=== PATIENT | female | born 1995 | race African-American/Black ===

== ENCOUNTER 2016-07-02 02:20 | Emergency (ER) | payer OTHER ==
[2016-07-02] MEDS ORDERED: ONDANSETRON 4 MG ORAL DISINTEGRATING TAB (S0181) As Ordered ONE (03:48)
[2016-07-02 04:05] LABS: ANION GAP 10 MEQ/L (8-16); BLOOD UREA NITROGEN 9 MG/DL (7-18); CALCIUM LEVEL 8.1 MG/DL (8.5-10.1); CARBON DIOXIDE LEVEL 25 MEQ/L (21-32); CHLORIDE LEVEL 105 MEQ/L (98-107); CREATININE FOR GFR 0.74 MG/DL (0.55-1.02); GLUCOSE, FASTING 131 MG/DL (70-105); POTASSIUM SERUM 3.8 MEQ/L (3.5-5.1); SODIUM LEVEL 140 MEQ/L (136-145)
[2016-07-02 04:10] LABS: MICROSCOPIC INDICATED? MAN YES (NO)
[2016-07-02 04:15] LABS: MEAN CORPUSCULAR HEMOGLOBIN 26.7 pg (27.0-33.0); MEAN CORPUSCULAR HGB CONC 32.2 g/dl (32.0-36.5); MEAN CORPUSCULAR VOLUME 83.1 fl (80.0-96.0); RED CELL DISTRIBUTION WIDTH 13.2 % (11.5-14.5); WHITE BLOOD COUNT 9.2 K/mm3 (4.0-10.0)
[2016-07-02 04:29] LABS: HYALINE CAST, URINE 0-1 /lpf (0-1); RBC, URINE 0-1 /hpf (0-3); SQUAMOUS EPITHELIAL CELL URINE MOD AMOUNT /hpf (SMALL AMT); WBC, URINE 0-1 /hpf (0-3)
[2016-07-02 04:31] LABS: BACTERIA, URINE NONE SEEN; MICROSCOPIC EXAM PERFORMED
[2016-07-02 04:36] LABS: HCG, SERUM QUANTITATIVE 64 MIU/ML
[2016-07-02] MEDS ORDERED: METOCLOPRAMIDE INJ 10MG/2ML VIAL (J2765) As Ordered ONE (05:23)
--- NOTE | 2016-07-02 05:53 | EDDOCDS ---
Physician Documentation [facility] Name: Esther Marino Age: 21 yrs Sex: Female : 1995 Arrival Date: 07/02/2016 Time: 02:20 Bed Triage 1 Private MD: Disposition: 07/02/16 05:03 Discharged to Home/Self Care. Impression: Noninfective gastroenteritis and colitis, unspecified, state, incidental. - Condition is Stable. - Discharge Instructions: Clear Liquid Diet. - Medication Reconciliation, Local Pharmacy Hours form. - Follow up: Private Physician; When: Call to arrange an appointment; Reason: Recheck today's complaints. - Problem is new. - Symptoms have improved. Historical: - Allergies: No known drug Allergies; - Home Meds: 1. Zoloft 50 mg oral tab 3 tabs once daily (Last dose: 07/01/2016) 2. Xanax 0.25 mg Oral tab 1 tab twice a day as needeed (Last dose: Unknown) - PMHx: Anxiety; Depression; - PSHx: none; - Social history: Smoking status: Patient states was never smoker of tobacco. No barriers to communication noted, The patient speaks fluent Slovak, Speaks appropriately for age. - : The pt / caregiver states he / she is not on anticoagulants. Home medication list is obtained from the patient. - Exposure Risk Screening:: None identified. 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 8 in. (172.72 cm) (R); Pain 7/10; 02:34 Body Mass Index 28.74 (85.73 kg, 172.72 cm) km MDM: 03:12 UCG by Nursing ordered. kmg1 03:13 CBC Ordered. EDMS 03:13 BMP Ordered. EDMS 03:13 Culture Urine Ordered. EDMS 03:50 Ondansetron ODT Oral Disintegrating Tablet 8 mg PO once ordered. kmg1 04:05 HCG, SERUM QUANTITATIVE Ordered. EDMS 04:07 URINALYSIS MANUAL Ordered. EDMS 04:09 BMP Reviewed. cs11 04:11 MICROSCOPIC, URINE Ordered. EDMS 04:11 URINALYSIS MANUAL Reviewed. cs11 04:13 NS 0.9% 500 ml IV at bolus once ordered. cs11 04:18 Metoclopramide 10 mg IV at 40 mg/hr once over 15 mins ordered. cs11 04:20 CBC Reviewed. cs11 04:25 Financial registration complete. hs2 04:34 [facility] Payment Agreement was scanned into [employer] and attached to record. hs2 05:01 BMP Reviewed. cs11 05:01 URINALYSIS MANUAL Reviewed. cs11 05:01 MICROSCOPIC, URINE Reviewed. cs11 05:01 HCG, SERUM QUANTITATIVE Reviewed. cs11 Administered Medications: 03:55 Drug: Ondansetron ODT 8 mg [ondansetron 4 mg disintegrating tablet (2 tabs)] Route: PO; kmg1 04:35 Drug: NS 0.9% 500 ml [sodium chloride 0.9 % injection solution] Route: IV; Rate: bolus; kmg1 Site: right antecubital; 05:50 Follow up: IV Status: Completed infusion; IV Intake: 1000ml [facility] 05:27 Drug: Metoclopramide 10 mg [metoclopramide 5 mg/mL injection solution] Route: IV; Rate: kmg1 40 mg/hr; Infused Over: 15 mins; Site: right antecubital; Signatures: [facility] Luz Carter RN RN km Adryan Reyes, DO cs11 Eri Cary LPN LPN m Millie Moss, Reg Reg hs2 The chart was reviewed and I authenticate all verbal orders and agree with the evaluation and treatment provided.Corrections: (The following items were deleted from the chart) 04:03 03:59 HCG, SERUM QUANTITATIVE+LAB ordered. EDMS EDMS 04:07 03:13 URINALYSIS+LAB ordered. EDMS EDMS Attachments: 04:34 [facility] Payment Agreement hs2 MTDD
--- NOTE | 2016-07-02 05:53 | EDDOCDS ---
Nurse's Notes [facility] Name: Esther Marino Age: 21 yrs Sex: Female : 1995 Arrival Date: 07/02/2016 Time: 02:20 Bed Triage 1 Private MD: Diagnosis: Noninfective gastroenteritis and colitis, unspecified; state, incidental Presentation: 07/02 02:31 Presenting complaint: Patient states: Vomiting and diarrhea this evening. Nauseated mid kmg1 abdominal pain. Suicide/Homicide risk assessment- the patient denies having any suicidal and/or homicidal ideations and does not present with any other emotional, behavioral or mental health complaints. Status: The patient is a dependent. Transition of care: patient was not received from another setting of care. 02:31 Acuity: DUSTY Level 3 km 02:31 Method Of Arrival: Walkin/Carried/Asstd [facility] Triage Assessment: 02:34 General: Appears in no apparent distress, comfortable, Behavior is appropriate for age, kmg1 cooperative, pleasant. Pain: Location: abdomen Pain currently is 7 out of 10 on a pain scale. Quality of pain is described as sharp. Pt Declines HIV testing. GI: Reports diarrhea, upper abd pain, nausea, vomiting. 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 Zoloft 50 mg oral tab 3 tabs once daily (Last dose: 07/01/2016) 2. Xanax 0.25 mg Oral tab 1 tab twice a day as needeed (Last dose: Unknown) - PMHx: Anxiety; Depression; - PSHx: none; - Social history: Smoking status: Patient states was never smoker of tobacco. No barriers to communication noted, The patient speaks fluent Mongolian, Speaks appropriately for age. - : The pt / caregiver states he / she is not on anticoagulants. Home medication list is obtained from the patient. - Exposure Risk Screening:: None identified. Assessment: 05:51 Reassessment: Patient appears in no apparent distress at this time. Patient states slm feeling better. Patient states symptoms have improved. Vital Signs: 02:34 BP 138 / 81; Pulse 98; Resp 18; Temp 98(TE); Pulse Ox 95% on R/A; Weight 85.73 kg (R); kmg1 Height 5 ft. 8 in. (172.72 cm) (R); Pain 7/10; 02:34 Body Mass Index 28.74 (85.73 kg, 172.72 cm) [facility] Vitals: 02:34 Log In Time: July 02, 2016 at 02:22. [facility] ED Course: 02:21 Patient visited by Millie Moss Reg. hs2 02:21 Patient moved to Waiting hs2 02:32 Triage Initiated km 02:38 Patient visited by Luz Horn RN. kmg1 03:56 Culture Urine Sent. kmg1 04:05 Patient moved to Triage 1 kmg1 04:12 Adryan Reyes DO is Attending Physician. cs11 04:12 Patient visited by Adryan Reyes DO. cs11 04:31 Patient name changed from Esther\S\\S\Ekata\S\ to Esther\S\ \S\Ekata. EDMS 04:34 [facility] Payment Agreement was scanned into [employer] and attached to record. hs2 05:50 Eri Cary LPN is Primary Nurse. slm 05:51 Inserted saline lock: 20 gauge in right antecubital area. slm 05:51 Discontinued lock intact, bleeding controlled, pressure dressing applied, No slm redness/swelling at site. Administered Medications: 03:55 Drug: Ondansetron ODT 8 mg [ondansetron 4 mg disintegrating tablet (2 tabs)] Route: PO; [facility] 04:35 Drug: NS 0.9% 500 ml [sodium chloride 0.9 % injection solution] Route: IV; Rate: bolus; [facility] Site: right antecubital; 05:50 Follow up: IV Status: Completed infusion; IV Intake: 1000ml [facility] 05:27 Drug: Metoclopramide 10 mg [metoclopramide 5 mg/mL injection solution] Route: IV; Rate: [facility] 40 mg/hr; Infused Over: 15 mins; Site: right antecubital; Intake: 05:50 IV: 1000.00ml; Total: 1000.00ml. slm Order Results: Lab Order: CBC; SPEC'M 07/02/16 03:38 Test: WHITE BLOOD COUNT; Value: 9.2; Range: 4.0-10.0; Units: K/mm3; Status: F Test: RED BLOOD COUNT; Value: 5.07; Range: 4.00-5.40; Units: M/mm3; Status: F Test: HEMOGLOBIN; Value: 13.6; Range: 12.0-16.0; Units: g/dl; Status: F Test: HEMATOCRIT; Value: 42.1; Range: 36.0-47.0; Units: %; Status: F Test: MEAN CORPUSCULAR VOLUME; Value: 83.1; Range: 80.0-96.0; Units: fl; Status: F Test: MEAN CORPUSCULAR HEMOGLOBIN; Value: 26.7; Range: 27.0-33.0; Abnormal: Below low normal; Units: pg; Status: F Test: MEAN CORPUSCULAR HGB CONC; Value: 32.2; Range: 32.0-36.5; Units: g/dl; Status: F Test: RED CELL DISTRIBUTION WIDTH; Value: 13.2; Range: 11.5-14.5; Units: %; Status: F Test: PLATELET COUNT, AUTOMATED; Value: 256; Range: 150-450; Units: k/mm3; Status: F Lab Order: [facility]; SPEC'M 07/02/16 03:38 Test: GLUCOSE, FASTING; Value: 131; Range: 70-105; Abnormal: Above high normal; Units: MG/DL; Status: F Test: BLOOD UREA NITROGEN; Value: 9; Range: 7-18; Units: MG/DL; Status: F Test: CREATININE FOR GFR; Value: 0.74; Range: 0.55-1.02; Units: MG/DL; Status: F Test: SODIUM LEVEL; Value: 140; Range: 136-145; Units: MEQ/L; Status: F Test: POTASSIUM SERUM; Value: 3.8; Range: 3.5-5.1; Units: MEQ/L; Status: F Test: CHLORIDE LEVEL; Value: 105; Range: 98-107; Units: MEQ/L; Status: F Test: CARBON DIOXIDE LEVEL; Value: 25; Range: 21-32; Units: MEQ/L; Status: F Test: ANION GAP; Value: 10; Range: 8-16; Units: MEQ/L; Status: F Test: CALCIUM LEVEL; Value: 8.1; Range: 8.5-10.1; Abnormal: Below low normal; Units: MG/DL; Status: F Lab Order: HCG, SERUM QUANTITATIVE; [facility]'M 07/02/16 03:38 Test: HCG, SERUM QUANTITATIVE; Value: 64; Units: MIU/ML; Status: F Test Note: ; GESTATIONAL AGE APPROXIMATE HCG RANGE (MIU/ML) 0.2-1 WEEK 5-50 1-2 WEEKS 50-500 2-3 WEEKS 100-5,000 3-4 WEEKS 500-10,000 4-5 WEEKS 1,000-50,000 5-6 WEEKS 10,000-100,000 6-8 WEEKS 15,000-200,000 2-3 MONTHS 10,000-100,000 NON FEMALES LESS THAN 3.0 Patient samples may contain human heterophilic antibodies that could react with immunoassays to give falsely elevated or depressed results. This assay has been designed to minimize interference from heterophilic antibodies. Elevated hCG levels have also been associated with trophoblastic disease and nontrophoblastic neoplasms. The possibility of having these diseases should be considered before a diagnosis of is made. This test is not intended for use as a surrogate marker for aiding in the diagnosis or monitoring the treatment of cancer patients. Siemens Noxilizer methodology. Lab Order: URINALYSIS MANUAL; [facility]' 07/02/16 03:54 Test: APPEARANCE, URINE MANUAL; Value: HAZY; Range: CLEAR; Abnormal: Above high normal; Status: F Test: COLOR, URINE MANUAL; Value: YELLOW; Range: YELLOW; Status: F Test: PH,URINE MAN; Value: 5.0; Range: 5.0 - 9.0; Units: UNITS; Status: F Test: SPECIFIC GRAVITY,URINE MANUAL; Value: 1.025; Range: 1.002-1.035; Status: F Test: PROTEIN, URINE MANUAL; Value: 1+; Range: NEGATIVE; Abnormal: Above high normal; Units: mg/dL; Status: F Test: GLUCOSE, URINE (UA) MANUAL; Value: NEGATIVE; Range: NEGATIVE; Units: mg/dL; Status: F Test: KETONE, URINE MANUAL; Value: NEGATIVE; Range: NEGATIVE; Units: mg/dL; Status: F Test: UROBILINOGEN, URINE MANUAL; Value: NORMAL; Range: NORMAL; Units: mg/dl; Status: F Test: BILIRUBIN, URINE MANUAL; Value: NEGATIVE; Range: NEGATIVE; Status: F Test: NITRITE, URINE MANUAL; Value: NEGATIVE; Range: NEGATIVE; Status: F Test: LEUKOCYTE ESTERASE, URINE MAN; Value: TRACE; Range: NEGATIVE; Abnormal: Above high normal; Status: F Test: BLOOD URINE MANUAL; Value: POSITIVE; Range: NEGATIVE; Abnormal: Above high normal; Status: F Lab Order: MICROSCOPIC, URINE; SPEC'M 07/02/16 03:54 Test: WBC, URINE; Value: 0-1; Range: 0-3; Units: /hpf; Status: F Test: RBC, URINE; Value: 0-1; Range: 0-3; Units: /hpf; Status: F Test: SQUAMOUS EPITHELIAL CELL URINE; Value: MOD AMOUNT; Range: SMALL AMT; Abnormal: Above high normal; Units: /hpf; Status: F Test: BACTERIA, URINE; Value: NONE SEEN; Range: NONE; Status: F Test: HYALINE CAST, URINE; Value: 0-1; Range: 0-1; Units: /lpf; Status: F Test: MICROSCOPIC EXAM; Status: I Test: MUCUS, URINE; Value: LARGE AMOUNT; Range: NEGATIVE; Abnormal: Above high normal; Status: F Test: MICROSCOPIC EXAM; Value: PERFORMED; Status: F Outcome: 05:03 Discharge ordered by Provider. cs11 05:50 Discharge Assessment: Patient awake, alert and oriented x 3. No cognitive and/or slm functional deficits noted. Patient verbalized understanding of disposition instructions. patient administered narcotics - no. The following High Risk Discharge criteria are identified: None. Condition: good Condition: improved. Discharge instructions given to patient, Instructed on discharge instructions, follow up and referral plans. diet, Demonstrated understanding of instructions, Pt was receptive of discharge instructions/ teaching. No special radiology studies were completed. Property :Personal belongings accompany Pt. 05:52 Patient left the ED. slm Signatures: Dispatcher [employer] EDMS Luz Horn RN RN [facility] Adryan Reyes, DO DO cs11 Eri Cary LPN LPN [facility] Millie Moss, Reg Reg hs2 Corrections: (The following items were deleted from the chart) 04:03 04:01 HCG, SERUM QUANTITATIVE+LAB sent. [facility] EDMS 04:07 03:56 URINALYSIS+LAB sent. kmg1 EDMS MTDD
--- NOTE | 2016-07-04 06:52 | EDDOCDS ---
Physician Documentation [facility] Name: Esther Marino Age: 21 yrs Sex: Female : 1995 Arrival Date: 07/02/2016 Time: 02:20 Bed Triage 1 Private MD: Disposition: 07/02/16 05:03 Discharged to Home/Self Care. Impression: Noninfective gastroenteritis and colitis, unspecified, state, incidental. - Condition is Stable. - Discharge Instructions: Clear Liquid Diet. - Medication Reconciliation, Local Pharmacy Hours form. - Follow up: Private Physician; When: Call to arrange an appointment; Reason: Recheck today's complaints. - Problem is new. - Symptoms have improved. Historical: - Allergies: No known drug Allergies; - Home Meds: 1. Zoloft 50 mg oral tab 3 tabs once daily (Last dose: 07/01/2016) 2. Xanax 0.25 mg Oral tab 1 tab twice a day as needeed (Last dose: Unknown) - PMHx: Anxiety; Depression; - PSHx: none; - Social history: Smoking status: Patient states was never smoker of tobacco. No barriers to communication noted, The patient speaks fluent Slovenian, Speaks appropriately for age. - : The pt / caregiver states he / she is not on anticoagulants. Home medication list is obtained from the patient. - Exposure Risk Screening:: None identified. 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 8 in. (172.72 cm) (R); Pain 7/10; 02:34 Body Mass Index 28.74 (85.73 kg, 172.72 cm) km MDM: 03:12 UCG by Nursing ordered. kmg1 03:13 CBC Ordered. EDMS 03:13 BMP Ordered. EDMS 03:13 Culture Urine Ordered. EDMS 03:50 Ondansetron ODT Oral Disintegrating Tablet 8 mg PO once ordered. kmg1 04:05 HCG, SERUM QUANTITATIVE Ordered. EDMS 04:07 URINALYSIS MANUAL Ordered. EDMS 04:09 BMP Reviewed. cs11 04:11 MICROSCOPIC, URINE Ordered. EDMS 04:11 URINALYSIS MANUAL Reviewed. cs11 04:13 NS 0.9% 500 ml IV at bolus once ordered. cs11 04:18 Metoclopramide 10 mg IV at 40 mg/hr once over 15 mins ordered. cs11 04:20 CBC Reviewed. cs11 04:25 Financial registration complete. hs2 04:34 [facility] Payment Agreement was scanned into [employer] and attached to record. hs2 05:01 BMP Reviewed. cs11 05:01 URINALYSIS MANUAL Reviewed. cs11 05:01 MICROSCOPIC, URINE Reviewed. cs11 05:01 HCG, SERUM QUANTITATIVE Reviewed. cs11 08:38 T-Sheet-- Draft Copy was scanned into [employer] and attached to record. se Administered Medications: 03:55 Drug: Ondansetron ODT 8 mg [ondansetron 4 mg disintegrating tablet (2 tabs)] Route: PO; kmg1 04:35 Drug: NS 0.9% 500 ml [sodium chloride 0.9 % injection solution] Route: IV; Rate: bolus; kmg1 Site: right antecubital; 05:50 Follow up: IV Status: Completed infusion; IV Intake: 1000ml [facility] 05:27 Drug: Metoclopramide 10 mg [metoclopramide 5 mg/mL injection solution] Route: IV; Rate: kmg1 40 mg/hr; Infused Over: 15 mins; Site: right antecubital; Signatures: Dispatcher [employer] EDMS Luz Horn RN RN kmg1 Adryan Reyes DO DO cs11 Eri Cary LPN LPN [facility] Millie Moss, Reg Reg hs2 Litzy Dotson [facility] The chart was reviewed and I authenticate all verbal orders and agree with the evaluation and treatment provided.Corrections: (The following items were deleted from the chart) 04:03 03:59 HCG, SERUM QUANTITATIVE+LAB ordered. EDMS EDMS 04:07 03:13 URINALYSIS+LAB ordered. EDMS EDMS Attachments: 04:34 [facility] Payment Agreement hs2 08:38 T-Sheet-- Draft Copy [facility] Chart Complete MTDD
--- NOTE | 2016-07-04 06:52 | EDDOCDS ---
Nurse's Notes [facility] Name: Esther Marino Age: 21 yrs Sex: Female : 1995 Arrival Date: 07/02/2016 Time: 02:20 Bed Triage 1 Private MD: Diagnosis: Noninfective gastroenteritis and colitis, unspecified; state, incidental Presentation: 07/02 02:31 Presenting complaint: Patient states: Vomiting and diarrhea this evening. Nauseated mid kmg1 abdominal pain. Suicide/Homicide risk assessment- the patient denies having any suicidal and/or homicidal ideations and does not present with any other emotional, behavioral or mental health complaints. Status: The patient is a dependent. Transition of care: patient was not received from another setting of care. 02:31 Acuity: DUSTY Level 3 km 02:31 Method Of Arrival: Walkin/Carried/Asstd [facility] Triage Assessment: 02:34 General: Appears in no apparent distress, comfortable, Behavior is appropriate for age, kmg1 cooperative, pleasant. Pain: Location: abdomen Pain currently is 7 out of 10 on a pain scale. Quality of pain is described as sharp. Pt Declines HIV testing. GI: Reports diarrhea, upper abd pain, nausea, vomiting. [employer]BLER: 02:34 LMP 05/21/2016 [facility] Historical: - Allergies: No known drug Allergies; - Home Meds: 1. Zoloft 50 mg oral tab 3 tabs once daily (Last dose: 07/01/2016) 2. Xanax 0.25 mg Oral tab 1 tab twice a day as needeed (Last dose: Unknown) - PMHx: Anxiety; Depression; - PSHx: none; - Social history: Smoking status: Patient states was never smoker of tobacco. No barriers to communication noted, The patient speaks fluent [place] Citizen, Speaks appropriately for age. - : The pt / caregiver states he / she is not on anticoagulants. Home medication list is obtained from the patient. - Exposure Risk Screening:: None identified. Assessment: 05:51 Reassessment: Patient appears in no apparent distress at this time. Patient states slm feeling better. Patient states symptoms have improved. Vital Signs: 02:34 BP 138 / 81; Pulse 98; Resp 18; Temp 98(TE); Pulse Ox 95% on R/A; Weight 85.73 kg (R); kmg1 Height 5 ft. 8 in. (172.72 cm) (R); Pain 7/10; 02:34 Body Mass Index 28.74 (85.73 kg, 172.72 cm) [facility] Vitals: 02:34 Log In Time: July 02, 2016 at 02:22. [facility] ED Course: 02:21 Patient visited by Millie Moss Reg. hs2 02:21 Patient moved to Waiting hs2 02:32 Triage Initiated km 02:38 Patient visited by Luz Horn RN. kmg1 03:56 Culture Urine Sent. kmg1 04:05 Patient moved to Triage 1 kmg1 04:12 Adryan Reyes DO is Attending Physician. cs11 04:12 Patient visited by Adryan Reyes DO. cs11 04:31 Patient name changed from Esther\S\\S\Ekata\S\ to Esther\S\ \S\Ekata. EDMS 04:34 [facility] [place] Agreement was scanned into [employer] and attached to record. hs2 05:50 Eri Cary LPN is Primary Nurse. slm 05:51 Inserted saline lock: 20 gauge in right antecubital area. slm 05:51 Discontinued lock intact, bleeding controlled, pressure dressing applied, No slm redness/swelling at site. 08:38 T-Sheet-- Draft Copy was scanned into [employer] and attached to record. [facility] Administered Medications: 03:55 Drug: Ondansetron ODT 8 mg [ondansetron 4 mg disintegrating tablet (2 tabs)] Route: PO; [facility] 04:35 Drug: NS 0.9% 500 ml [sodium chloride 0.9 % injection solution] Route: IV; Rate: bolus; km Site: right antecubital; 05:50 Follow up: IV Status: Completed infusion; IV Intake: 1000ml sl 05:27 Drug: Metoclopramide 10 mg [metoclopramide 5 mg/mL injection solution] Route: IV; Rate: kmg1 40 mg/hr; Infused Over: 15 mins; Site: right antecubital; Intake: 05:50 IV: 1000.00ml; Total: 1000.00ml. slm Order Results: Lab Order: Culture Urine; SPEC'M 07/02/16 03:54 Test: URINE CULTURE; Value: <EXTERNAL COMMENT eCWMed> FULL REPORT IN LAB NOTES (eCW and Medent).; Status: F Test: URINE CULTURE; Value: URINE CULTURE RESULT SPECIMEN APPEARS CONTAMINATED; Status: F Lab Order: CBC; SPEC'M 07/02/16 03:38 Test: WHITE BLOOD COUNT; Value: 9.2; Range: 4.0-10.0; Units: K/mm3; Status: F Test: RED BLOOD COUNT; Value: 5.07; Range: 4.00-5.40; Units: M/mm3; Status: F Test: HEMOGLOBIN; Value: 13.6; Range: 12.0-16.0; Units: g/dl; Status: F Test: HEMATOCRIT; Value: 42.1; Range: 36.0-47.0; Units: %; Status: F Test: MEAN CORPUSCULAR VOLUME; Value: 83.1; Range: 80.0-96.0; Units: fl; Status: F Test: MEAN CORPUSCULAR HEMOGLOBIN; Value: 26.7; Range: 27.0-33.0; Abnormal: Below low normal; Units: pg; Status: F Test: MEAN CORPUSCULAR HGB CONC; Value: 32.2; Range: 32.0-36.5; Units: g/dl; Status: F Test: RED CELL DISTRIBUTION WIDTH; Value: 13.2; Range: 11.5-14.5; Units: %; Status: F Test: PLATELET COUNT, AUTOMATED; Value: 256; Range: 150-450; Units: k/mm3; Status: F Lab Order: BMP; SPEC'M 07/02/16 03:38 Test: GLUCOSE, FASTING; Value: 131; Range: 70-105; Abnormal: Above high normal; Units: MG/DL; Status: F Test: BLOOD UREA NITROGEN; Value: 9; Range: 7-18; Units: MG/DL; Status: F Test: CREATININE FOR GFR; Value: 0.74; Range: 0.55-1.02; Units: MG/DL; Status: F Test: SODIUM LEVEL; Value: 140; Range: 136-145; Units: MEQ/L; Status: F Test: POTASSIUM SERUM; Value: 3.8; Range: 3.5-5.1; Units: MEQ/L; Status: F Test: CHLORIDE LEVEL; Value: 105; Range: 98-107; Units: MEQ/L; Status: F Test: CARBON DIOXIDE LEVEL; Value: 25; Range: 21-32; Units: MEQ/L; Status: F Test: ANION GAP; Value: 10; Range: 8-16; Units: MEQ/L; Status: F Test: CALCIUM LEVEL; Value: 8.1; Range: 8.5-10.1; Abnormal: Below low normal; Units: MG/DL; Status: F Lab Order: HCG, SERUM QUANTITATIVE; SPEC'M 07/02/16 03:38 Test: HCG, SERUM QUANTITATIVE; Value: 64; Units: MIU/ML; Status: F Test Note: ; GESTATIONAL AGE APPROXIMATE HCG RANGE (MIU/ML) 0.2-1 WEEK 5-50 1-2 WEEKS 50-500 2-3 WEEKS 100-5,000 3-4 WEEKS 500-10,000 4-5 WEEKS 1,000-50,000 5-6 WEEKS 10,000-100,000 6-8 WEEKS 15,000-200,000 2-3 MONTHS 10,000-100,000 NON FEMALES LESS THAN 3.0 Patient samples may contain human heterophilic antibodies that could react with immunoassays to give falsely elevated or depressed results. This assay has been designed to minimize interference from heterophilic antibodies. Elevated hCG levels have also been associated with trophoblastic disease and nontrophoblastic neoplasms. The possibility of having these diseases should be considered before a diagnosis of is made. This test is not intended for use as a surrogate marker for aiding in the diagnosis or monitoring the treatment of cancer patients. [employer] methodology. Lab Order: URINALYSIS MANUAL; SPEC'M 07/02/16 03:54 Test: APPEARANCE, URINE MANUAL; Value: HAZY; Range: CLEAR; Abnormal: Above high normal; Status: F Test: COLOR, URINE MANUAL; Value: YELLOW; Range: YELLOW; Status: F Test: PH,URINE MAN; Value: 5.0; Range: 5.0 - 9.0; Units: UNITS; Status: F Test: SPECIFIC GRAVITY,URINE MANUAL; Value: 1.025; Range: 1.002-1.035; Status: F Test: PROTEIN, URINE MANUAL; Value: 1+; Range: NEGATIVE; Abnormal: Above high normal; Units: mg/dL; Status: F Test: GLUCOSE, URINE (UA) MANUAL; Value: NEGATIVE; Range: NEGATIVE; Units: mg/dL; Status: F Test: KETONE, URINE MANUAL; Value: NEGATIVE; Range: NEGATIVE; Units: mg/dL; Status: F Test: UROBILINOGEN, URINE MANUAL; Value: NORMAL; Range: NORMAL; Units: mg/dl; Status: F Test: BILIRUBIN, URINE MANUAL; Value: NEGATIVE; Range: NEGATIVE; Status: F Test: NITRITE, URINE MANUAL; Value: NEGATIVE; Range: NEGATIVE; Status: F Test: LEUKOCYTE ESTERASE, URINE MAN; Value: TRACE; Range: NEGATIVE; Abnormal: Above high normal; Status: F Test: BLOOD URINE MANUAL; Value: POSITIVE; Range: NEGATIVE; Abnormal: Above high normal; Status: F Lab Order: MICROSCOPIC, URINE; SPEC'M 07/02/16 03:54 Test: WBC, URINE; Value: 0-1; Range: 0-3; Units: /hpf; Status: F Test: RBC, URINE; Value: 0-1; Range: 0-3; Units: /hpf; Status: F Test: SQUAMOUS EPITHELIAL CELL URINE; Value: MOD AMOUNT; Range: SMALL AMT; Abnormal: Above high normal; Units: /hpf; Status: F Test: BACTERIA, URINE; Value: NONE SEEN; Range: NONE; Status: F Test: HYALINE CAST, URINE; Value: 0-1; Range: 0-1; Units: /lpf; Status: F Test: MICROSCOPIC EXAM; Status: I Test: MUCUS, URINE; Value: LARGE AMOUNT; Range: NEGATIVE; Abnormal: Above high normal; Status: F Test: MICROSCOPIC EXAM; Value: PERFORMED; Status: F Outcome: 05:03 Discharge ordered by Provider. cs11 05:50 Discharge Assessment: Patient awake, alert and oriented x 3. No cognitive and/or slm functional deficits noted. Patient verbalized understanding of disposition instructions. patient administered narcotics - no. The following High Risk Discharge criteria are identified: None. Condition: good Condition: improved. Discharge instructions given to patient, Instructed on discharge instructions, follow up and referral plans. diet, Demonstrated understanding of instructions, Pt was receptive of discharge instructions/ teaching. No special radiology studies were completed. Property :Personal belongings accompany Pt. 05:52 Patient left the ED. [facility] Signatures: Dispatcher [employer] EDMS Luz Horn, ALESSANDRO RN [facility] Adryan Reyes, DO cs11 Eri Cary LPN LPN [facility] Millie Moss, Reg Reg hs2 Litzy Dotson Corrections: (The following items were deleted from the chart) 04:03 04:01 HCG, SERUM QUANTITATIVE+LAB sent. [address] 04:07 03:56 URINALYSIS+LAB sent. [address] Chart Complete MTDD
--- NOTE | 2016-07-04 06:52 | EDDOCDS ---
Physician Documentation [facility] Name: Esther Marino Age: 21 yrs Sex: Female : 1995 Arrival Date: 07/02/2016 Time: 02:20 Bed Triage 1 Private MD: Disposition: 07/02/16 05:03 Discharged to Home/Self Care. Impression: Noninfective gastroenteritis and colitis, unspecified, state, incidental. - Condition is Stable. - Discharge Instructions: Clear Liquid Diet. - Medication Reconciliation, Local Pharmacy Hours form. - Follow up: Private Physician; When: Call to arrange an appointment; Reason: Recheck today's complaints. - Problem is new. - Symptoms have improved. Historical: - Allergies: No known drug Allergies; - Home Meds: 1. Zoloft 50 mg oral tab 3 tabs once daily (Last dose: 07/01/2016) 2. Xanax 0.25 mg Oral tab 1 tab twice a day as needeed (Last dose: Unknown) - PMHx: Anxiety; Depression; - PSHx: none; - Social history: Smoking status: Patient states was never smoker of tobacco. No barriers to communication noted, The patient speaks fluent Arabic, Speaks appropriately for age. - : The pt / caregiver states he / she is not on anticoagulants. Home medication list is obtained from the patient. - Exposure Risk Screening:: None identified. 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 8 in. (172.72 cm) (R); Pain 7/10; 02:34 Body Mass Index 28.74 (85.73 kg, 172.72 cm) km MDM: 03:12 UCG by Nursing ordered. kmg1 03:13 CBC Ordered. EDMS 03:13 BMP Ordered. EDMS 03:13 Culture Urine Ordered. EDMS 03:50 Ondansetron ODT Oral Disintegrating Tablet 8 mg PO once ordered. kmg1 04:05 HCG, SERUM QUANTITATIVE Ordered. EDMS 04:07 URINALYSIS MANUAL Ordered. EDMS 04:09 BMP Reviewed. cs11 04:11 MICROSCOPIC, URINE Ordered. EDMS 04:11 URINALYSIS MANUAL Reviewed. cs11 04:13 NS 0.9% 500 ml IV at bolus once ordered. cs11 04:18 Metoclopramide 10 mg IV at 40 mg/hr once over 15 mins ordered. cs11 04:20 CBC Reviewed. cs11 04:25 Financial registration complete. hs2 04:34 [facility] Payment Agreement was scanned into [employer] and attached to record. hs2 05:01 BMP Reviewed. cs11 05:01 URINALYSIS MANUAL Reviewed. cs11 05:01 MICROSCOPIC, URINE Reviewed. cs11 05:01 HCG, SERUM QUANTITATIVE Reviewed. cs11 08:38 T-Sheet-- Draft Copy was scanned into [employer] and attached to record. se Administered Medications: 03:55 Drug: Ondansetron ODT 8 mg [ondansetron 4 mg disintegrating tablet (2 tabs)] Route: PO; kmg1 04:35 Drug: NS 0.9% 500 ml [sodium chloride 0.9 % injection solution] Route: IV; Rate: bolus; kmg1 Site: right antecubital; 05:50 Follow up: IV Status: Completed infusion; IV Intake: 1000ml [facility] 05:27 Drug: Metoclopramide 10 mg [metoclopramide 5 mg/mL injection solution] Route: IV; Rate: kmg1 40 mg/hr; Infused Over: 15 mins; Site: right antecubital; Signatures: Dispatcher [employer] EDMS Luz Horn RN RN kmg1 Adryan Reyes DO DO cs11 Eri Cary LPN LPN [facility] Millie Moss, Reg Reg hs2 Litzy Dotson [facility] The chart was reviewed and I authenticate all verbal orders and agree with the evaluation and treatment provided.Corrections: (The following items were deleted from the chart) 04:03 03:59 HCG, SERUM QUANTITATIVE+LAB ordered. EDMS EDMS 04:07 03:13 URINALYSIS+LAB ordered. EDMS EDMS Attachments: 04:34 [facility] Payment Agreement hs2 08:38 T-Sheet-- Draft Copy [facility] Chart Complete MTDD
== END 2016-07-02 05:52 | disposition home or self-care (01) ==
LOC: M ED 02:20
DX: O98.519 Other viral diseases complicating pregnancy, unspecified trimester (principal); Z3A.00 Weeks of gestation of pregnancy not specified; F41.9 Anxiety disorder, unspecified; F32.9 Major depressive disorder, single episode, unspecified; Z79.899 Other long term (current) drug therapy
CPT/HCPCS: 80048; 81000; 84702; 85027; 87086; 96361; 96374; 99284; J2765

== ENCOUNTER 2016-09-07 08:03 | Emergency (ER) | payer OTHER ==
[~2016-09-07] VITALS: Ht 172.7 cm; Wt 77.1 kg
[2016-09-07] MEDS ORDERED: ZOLO100T PO (08:14)
[2016-09-07] MEDS ORDERED: XANA0.25 PO (08:14)
[2016-09-07] MEDS ORDERED: NS 1,000 ML IV ONE (08:45)
[2016-09-07 09:22] LABS: ALBUMIN 3.5 GM/DL (3.2-5.2); ALBUMIN/GLOBULIN RATIO 0.95 (1.00-1.93); ALKALINE PHOSPHATASE 45 U/L (45-117); ALT/SGPT 24 U/L (12-78); ANION GAP 7 MEQ/L (8-16); AST/SGOT 8 U/L (15-37); BILIRUBIN,DIRECT < 0.1 MG/DL (0.0-0.2); BILIRUBIN,TOTAL 0.2 MG/DL (0.2-1.0); BLOOD UREA NITROGEN 6 MG/DL (7-18); CALCIUM LEVEL 8.7 MG/DL (8.5-10.1); CARBON DIOXIDE LEVEL 26 MEQ/L (21-32); CHLORIDE LEVEL 105 MEQ/L (98-107); CREATININE FOR GFR 0.67 MG/DL (0.55-1.02); GLUCOSE, FASTING 85 MG/DL (70-105); POTASSIUM SERUM 3.7 MEQ/L (3.5-5.1); SODIUM LEVEL 138 MEQ/L (136-145); TOTAL PROTEIN 7.2 GM/DL (6.4-8.2)
[2016-09-07 09:34] LABS: BASO % 0.3 % (0.0-1.0); EOS # 0.1 K/mm3 (0.0-0.50); EOS % 0.8 % (0.0-3.0); LARGE UNSTAINED CELL # 0.1 K/mm3 (0.0-0.4); LARGE UNSTAINED CELL % 1.6 % (0.0-4.0); LYMPH # 1.5 K/mm3 (1.5-6.5); LYMPH % 16.2 % (24.0-44.0); MEAN CORPUSCULAR HGB CONC 32.4 g/dl (32.0-36.5); MEAN CORPUSCULAR VOLUME 83.4 fl (80.0-96.0); MONO # 0.4 K/mm3 (0.0-0.8); MONO % 4.5 % (0.0-5.0); NEUTROPHILS # 6.6 K/mm3 (1.8-7.7); NEUTROPHILS % 76.7 % (36.0-66.0); PLATELET COUNT, AUTOMATED 250 k/mm3 (150-450); RED CELL DISTRIBUTION WIDTH 13.4 % (11.5-14.5); WHITE BLOOD COUNT 8.6 K/mm3 (4.0-10.0)
[2016-09-07] MEDS ORDERED: SUCRALFATE 1 GM TAB PO ONE (09:45)
[2016-09-07] MEDS ORDERED: PANTOPRAZOLE 40MG INJ (PROTONIX) (C9113) IV ONE (09:45)
[2016-09-07] MEDS ORDERED: SUCR1SS PO (10:22)
[2016-09-07] MEDS ORDERED: PEPC1TAB4 PO (10:23)
[2016-09-07 10:33] VITALS: BP 137/74
== END 2016-09-07 10:35 | disposition home or self-care (01) ==
LOC: M ED 08:43
DX: O21.9 Vomiting of pregnancy, unspecified (principal); Z3A.13 13 weeks gestation of pregnancy
CPT/HCPCS: 80048; 80076; 83690; 85025; 96361; 96374; 99283; C9113

== ENCOUNTER 2016-09-20 14:27 | Emergency (ER) | payer OTHER ==
[~2016-09-20] VITALS: Ht 172.7 cm; Wt 100.2 kg
[~2016-09-20 14:27] MED LIST: PEPC1TAB4 PO; SUCR1SS PO; XANA0.25 PO; ZOLO100T PO
[2016-09-20] MEDS ORDERED: [UNRECOGNIZED DRUG - CODE] PO (14:56)
[2016-09-20] MEDS ORDERED: BUSP15TA47 PO (14:56)
[2016-09-20] MEDS ORDERED: RANI150T PO (14:56)
[2016-09-20] MEDS ORDERED: NS 1,000 ML IV ONE (15:45)
[2016-09-20] MEDS ORDERED: ONDANSETRON 4MG/2ML VIAL (J2405) IV ONE (15:45)
[2016-09-20 16:22] LABS: BASO % 0.2 % (0.0-1.0); EOS # 0.1 K/mm3 (0.0-0.50); EOS % 0.9 % (0.0-3.0); LARGE UNSTAINED CELL # 0.2 K/mm3 (0.0-0.4); LARGE UNSTAINED CELL % 1.8 % (0.0-4.0); LYMPH % 20.3 % (24.0-44.0); MEAN CORPUSCULAR HEMOGLOBIN 27.2 pg (27.0-33.0); MEAN CORPUSCULAR HGB CONC 32.9 g/dl (32.0-36.5); MEAN CORPUSCULAR VOLUME 82.8 fl (80.0-96.0); MONO # 0.5 K/mm3 (0.0-0.8); MONO % 5.6 % (0.0-5.0); NEUTROPHILS # 6.4 K/mm3 (1.8-7.7); NEUTROPHILS % 71.1 % (36.0-66.0); PLATELET COUNT, AUTOMATED 239 k/mm3 (150-450); RED CELL DISTRIBUTION WIDTH 13.3 % (11.5-14.5)
[2016-09-20 16:27] LABS: ALBUMIN 3.4 GM/DL (3.2-5.2); ALBUMIN/GLOBULIN RATIO 0.89 (1.00-1.93); ALKALINE PHOSPHATASE 43 U/L (45-117); ALT/SGPT 25 U/L (12-78); ANION GAP 7 MEQ/L (8-16); AST/SGOT 8 U/L (15-37); BILIRUBIN,DIRECT < 0.1 MG/DL (0.0-0.2); BILIRUBIN,TOTAL 0.2 MG/DL (0.2-1.0); BLOOD UREA NITROGEN 7 MG/DL (7-18); CALCIUM LEVEL 8.7 MG/DL (8.5-10.1); CARBON DIOXIDE LEVEL 25 MEQ/L (21-32); CHLORIDE LEVEL 104 MEQ/L (98-107); GLUCOSE, FASTING 82 MG/DL (70-105); POTASSIUM SERUM 3.9 MEQ/L (3.5-5.1); SODIUM LEVEL 136 MEQ/L (136-145); TOTAL PROTEIN 7.2 GM/DL (6.4-8.2)
[2016-09-20] MEDS ORDERED: METOCLOPRAMIDE INJ 10MG/2ML VIAL (J2765) IV ONE (18:30)
[2016-09-20] MEDS ORDERED: PYRIDOXINE 50 MG TAB PO ONE (18:30)
[2016-09-20 18:40] VITALS: BP 148/92
[2016-09-20] MEDS ORDERED: REGL10TA6 PO (19:18)
[2016-09-20] MEDS ORDERED: PYRI25TA3 PO (19:18)
== END 2016-09-20 19:38 | disposition home or self-care (01) ==
LOC: M ED 16:24
DX: O21.9 Vomiting of pregnancy, unspecified (principal); O99.89 Other specified diseases and conditions complicating pregnancy, childbirth and the puerperium; R10.13 Epigastric pain; Z3A.16 16 weeks gestation of pregnancy
CPT/HCPCS: 80048; 80076; 81001; 83690; 85025; 96374; 96375; 99283; J2405; J2765

== ENCOUNTER 2016-09-29 19:24 | Emergency (ER) | payer OTHER, SELFPAY ==
[~2016-09-29] VITALS: Ht 172.7 cm; Wt 103.9 kg
[~2016-09-29 19:24] MED LIST changes: +BUSP15TA47 PO; +PYRI25TA3 PO; +RANI150T PO; +REGL10TA6 PO; +[UNRECOGNIZED DRUG - CODE] PO
[2016-09-29] MEDS ORDERED: NS 1,000 ML IV ONE (21:15)
[2016-09-29] MEDS ORDERED: GI COCKTAIL 50ML BTL(HYOSCYAMINE/MAALOX/LIDOCAINE VISCOUS)(1:3:1) PO ONE (21:15)
[2016-09-29] MEDS ORDERED: ONDANSETRON 4MG/2ML VIAL (J2405) IV ONE (21:15)
[2016-09-29 21:48] LABS: BASO % 0.1 % (0.0-1.0); EOS # 0.2 K/mm3 (0.0-0.50); EOS % 1.8 % (0.0-3.0); LARGE UNSTAINED CELL # 0.1 K/mm3 (0.0-0.4); LARGE UNSTAINED CELL % 1.4 % (0.0-4.0); LYMPH # 2.3 K/mm3 (1.5-6.5); MEAN CORPUSCULAR HEMOGLOBIN 27.9 pg (27.0-33.0); MEAN CORPUSCULAR HGB CONC 34.4 g/dl (32.0-36.5); MEAN CORPUSCULAR VOLUME 81.1 fl (80.0-96.0); MONO # 0.4 K/mm3 (0.0-0.8); NEUTROPHILS # 6.8 K/mm3 (1.8-7.7); NEUTROPHILS % 69.8 % (36.0-66.0); PLATELET COUNT, AUTOMATED 244 k/mm3 (150-450); RED CELL DISTRIBUTION WIDTH 13.3 % (11.5-14.5); WHITE BLOOD COUNT 9.8 K/mm3 (4.0-10.0)
[2016-09-29 21:56] LABS: INR 1.06
--- NOTE | 2016-09-29 22:12 | ECGEPIP ---
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
[2016-09-29 22:16] LABS: ALBUMIN 3.3 GM/DL (3.2-5.2); ALBUMIN/GLOBULIN RATIO 0.97 (1.00-1.93); ALKALINE PHOSPHATASE 45 U/L (45-117); ALT/SGPT 28 U/L (12-78); ANION GAP 9 MEQ/L (8-16); AST/SGOT 6 U/L (15-37); BILIRUBIN,DIRECT < 0.1 MG/DL (0.0-0.2); BILIRUBIN,TOTAL 0.2 MG/DL (0.2-1.0); BLOOD UREA NITROGEN 7 MG/DL (7-18); CALCIUM LEVEL 8.8 MG/DL (8.5-10.1); CARBON DIOXIDE LEVEL 23 MEQ/L (21-32); CHLORIDE LEVEL 106 MEQ/L (98-107); CREATININE FOR GFR 0.56 MG/DL (0.55-1.02); GLUCOSE, FASTING 73 MG/DL (70-105); POTASSIUM SERUM 3.8 MEQ/L (3.5-5.1); SODIUM LEVEL 138 MEQ/L (136-145); TOTAL PROTEIN 6.7 GM/DL (6.4-8.2)
[2016-09-29] MEDS ORDERED: ZOFR4TAB3 PO (23:00)
[2016-09-29 23:05] VITALS: BP 132/82
== END 2016-09-29 23:52 | disposition home or self-care (01) ==
LOC: M ED 20:26
DX: O23.92 Unspecified genitourinary tract infection in pregnancy, second trimester (principal); K29.00 Acute gastritis without bleeding; K21.0 Gastro-esophageal reflux disease with esophagitis; O21.9 Vomiting of pregnancy, unspecified; Z3A.16 16 weeks gestation of pregnancy
CPT/HCPCS: 80048; 80076; 81001; 82550; 82553; 83690; 85025; 85610; 85730; 93005; 96374; 99284; J2405

== ENCOUNTER 2016-11-30 16:30 | Outpatient (CLI) | payer OTHER ==
[~2016-11-30] VITALS: Ht 172.7 cm; Wt 120.0 kg
[~2016-11-30 16:30] MED LIST changes: +ZOFR4TAB3 PO
== END 2016-11-30 18:04 | disposition home or self-care (01) ==
LOC: M LDO 16:30
PROVIDERS: ATTEND Obstetrics & Gynecology
DX: O26.852 Spotting complicating pregnancy, second trimester (principal); Z3A.25 25 weeks gestation of pregnancy; O99.612 Diseases of the digestive system complicating pregnancy, second trimester; K59.00 Constipation, unspecified; O99.342 Other mental disorders complicating pregnancy, second trimester; F41.9 Anxiety disorder, unspecified

== ENCOUNTER 2017-01-20 19:54 | Outpatient (CLI) | payer OTHER ==
[~2017-01-20] VITALS: Ht 172.7 cm; Wt 129.0 kg
[2017-01-20 20:10] VITALS: BP 157/105
[2017-01-20 20:35] VITALS: BP 153/82
[2017-01-20 21:09] VITALS: BP 137/95
[2017-01-20 21:57] LABS: ALT/SGPT 17 U/L (12-78); AST/SGOT 10 U/L (15-37); BILIRUBIN,TOTAL 0.2 MG/DL (0.2-1.0); CREATININE FOR GFR 0.74 MG/DL (0.55-1.02); GLOMERULAR FILTRATION RATE > 60.0 (>60); URIC ACID 4.1 MG/DL (2.6-6.0)
--- NOTE | 2017-01-21 00:24 | HPE ---
DATE OF ADMISSION: 01/20/2017 22-year-old 1, para 0, last menstrual period (LMP) of 06/08/2016, estimated date of confinement (EDC) 03/09/2017 at 33 weeks and 1 day of gestation with a history of 3 days of diarrhea. Did not take anything for the diarrhea and said she does not take the medications that we actually give her. Her risk factors are that she is noncompliant. She has a two-vessel cord, did not attend three ultrasound appointments to evaluate the fetus. Body mass index (BMI) is 42, did not do her 28 weeks labs. Suffers from depression, did not keep her appointment with psychiatry and does not take her Zoloft or her BuSpar as required. Her labs are O positive, HIV negative, rubella immune, RPR negative, sickle cell is negative. says he is negative. Hepatitis negative. Varicella immune. Cystic fibrosis negative and gonorrhea and chlamydia are negative. On examination, she does not appear in any distress. She has no diarrhea. She does not seem to be dehydrated. She has a category one strip and no contractions and she insists that she is fine and the baby is fine. She denies any vaginal loss or bleeding. Blood pressure is 157/105, 153/82 and 137/95, temperature 98.1, respirations 20, pulse is 91. This lady was leaving the area on 01/25 and does not have a followup appointment at [facility] ([facility]). When reviewed her chart, these were the only midrange blood pressures that we saw. She did not have any abnormal blood pressures in the limited time that she saw [facility]. Therefore pre-eclamptic profile was performed. She has no symptomatology of prerenal right upper quadrant pain. No visual disturbances. No edema. No headaches. In our evaluation of her chemistry, her protein creatinine shows 0.22. Her A1c was 5.5 and her random sugar was 111. Her kidney function was normal. Her liver profile was normal. Her uric acid was 4.1 and the rest of the CBC was within normal limits. The rest of her physical examination, she is normocephalic, atraumatic. Neck full range of motion. Pupils equal and reactive to light. Distal pulses symmetric. No evidence of deep venous thrombosis (DVT), pulmonary embolus (PE) or superficial phlebitis. No clonus. No edema. Chest is clear bilaterally to bases. No wheezes or rhonchi. No costovertebral angle (CVA) tenderness. Symphysis fundus height is appropriate. Category one strip. Four quadrant bowel sounds are noted and in fact some of them are hyperactive secondary to her gastrointestinal (GI) irritability. She has no rashes, lesions or pruritus. No arthralgia, myalgia. No complaints of cough, wheezes, shortness of breath or dyspnea on exertion. No chest pain. No bleeding. Neurologically complete. No incontinence, urgency or frequency. No nausea, vomiting. She said she has diarrhea. No constipation. Diabetic issues were unknown. Gynecological (DIRECTOR OF ONCOLOGY) issues unremarkable. Past surgical, medical history noncontributory. Family history noncontributory. She does not smoke, drink abuse drugs. She has no domestic violence. Her is being deployed tomorrow and she is leaving for [place] the following day with her two support dogs. Precautions were given. Again we emphasized the need to do ultrasounds. She said she is going to do it Monday or Monday, but she has not followed through with three reported scheduled ultrasounds to date. She said she is going to do her glucose when in fact, she has not done any of her 28-week labs. The patient was discharged to followup in [place] and is leaving on 01/23.
== END 2017-01-20 22:55 | disposition home or self-care (01) ==
LOC: M LDO 19:54
PROVIDERS: ATTEND Obstetrics & Gynecology
DX: O26.893 Other specified pregnancy related conditions, third trimester (principal); R19.7 Diarrhea, unspecified; Z3A.33 33 weeks gestation of pregnancy; Z91.19 Patient's noncompliance with other medical treatment and regimen; O99.343 Other mental disorders complicating pregnancy, third trimester; F33.9 Major depressive disorder, recurrent, unspecified

== ENCOUNTER 2018-05-16 22:55 | Emergency (ER) | payer OTHER ==
[~2018-05-16] VITALS: Ht 172.7 cm; Wt 113.6 kg
[~2018-05-16 22:55] MED LIST changes: -PEPC1TAB4 PO; +PEPC1TAB5 PO; -PYRI25TA3 PO; +PYRI25TA4 PO; +ZOFR4TAB14 PO; -ZOFR4TAB3 PO
[2018-05-16] MEDS ORDERED: ZOLO100T PO (23:29)
[2018-05-16] MEDS ORDERED: KETOROLAC 30 MG/ML VIAL (J1885) IV ONE (23:45)
[2018-05-16 23:53] LABS: BASO % 0.4 % (0.0-1.0); EOS # 0.3 10^3/uL (0.0-0.50); EOS % 3.5 % (0.0-3.0); HEMATOCRIT 36.1 % (36.0-47.0); HEMOGLOBIN 11.3 g/dl (12.0-15.5); LYMPH # 3.2 10^3/uL (1.5-6.5); LYMPH % 42.8 % (24.0-44.0); MEAN CORPUSCULAR HEMOGLOBIN 25.6 pg (27.0-33.0); MEAN CORPUSCULAR HGB CONC 31.3 g/dl (32.0-36.5); MEAN CORPUSCULAR VOLUME 81.9 fl (80.0-96.0); MONO # 0.7 10^3/uL (0.0-0.8); MONO % 8.8 % (0.0-5.0); NEUTROPHILS # 3.3 10^3/uL (1.8-7.7); NEUTROPHILS % 44.2 % (36.0-66.0); PLATELET COUNT, AUTOMATED 291 10^3/uL (150-450); RED BLOOD COUNT 4.41 10^6/uL (4.00-5.40); WHITE BLOOD COUNT 7.5 10^3/uL (4.0-10.0)
[2018-05-17 00:01] VITALS: BP 159/91
[2018-05-17 00:21] LABS: HCG, SERUM QUALITATIVE NEGATIVE (NEGATIVE)
[2018-05-17 00:24] LABS: ALBUMIN 3.2 GM/DL (3.2-5.2); ALT/SGPT 50 U/L (12-78); BILIRUBIN,DIRECT 0.1 MG/DL (0.0-0.2); BILIRUBIN,TOTAL 0.2 MG/DL (0.2-1.0); BLOOD UREA NITROGEN 8 MG/DL (7-18); CALCIUM LEVEL 8.3 MG/DL (8.5-10.1); CARBON DIOXIDE LEVEL 25 MEQ/L (21-32); CHLORIDE LEVEL 107 MEQ/L (98-107); CREATININE FOR GFR 0.69 MG/DL (0.55-1.30); GLOMERULAR FILTRATION RATE > 60.0 (>60); GLUCOSE, FASTING 94 MG/DL (70-100); LIPASE 413 U/L (73-393); POTASSIUM SERUM 3.8 MEQ/L (3.5-5.1); SODIUM LEVEL 142 MEQ/L (136-145); TOTAL PROTEIN 6.5 GM/DL (6.4-8.2)
[2018-05-17 00:51] LABS: INFLUENZA A AMPLIFICATION NEGATIVE (NEGATIVE); INFLUENZA B AMPLIFICATION NEGATIVE (NEGATIVE)
--- NOTE | 2018-05-17 01:29 | REPVR ---
EXAM: US Abdomen Limited, Right Upper Quadrant EXAM DATE/TIME: 05/17/2018 1:13 AM CLINICAL HISTORY: 23 years old, female; Pain; Abdominal pain; Epigastric; Additional info: Ruq pain TECHNIQUE: Real-time ultrasound of the abdomen with image documentation. Examination was focused on the right upper quadrant. COMPARISON: No relevant prior studies available. FINDINGS: Liver: Unremarkable. Gallbladder: No gallstones. No gallbladder wall thickening or pericholecystic fluid. 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 Common bile duct: No stones. No ductal dilatation. Pancreas: Suboptimally visualized. Right kidney: No mass. No definite stones. No hydronephrosis. IMPRESSION: No acute sonographic findings. Electronically signed by: Kelechi Vences On 05/17/2018 01:29:34 AM
--- NOTE | 2018-05-17 03:05 | ECGEPIP ---
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
== END 2018-05-17 01:53 | disposition left against medical advice (07) ==
LOC: M ED 22:55 → EDBD 22:55 → M ED 05-17 01:53
DX: R10.13 Epigastric pain (principal); R11.0 Nausea; F33.9 Major depressive disorder, recurrent, unspecified; E66.9 Obesity, unspecified; Z79.899 Other long term (current) drug therapy
CPT/HCPCS: 76705; 80048; 80076; 83690; 84703; 85025; 87502; 93005; 93041; 96374; 99284; J1885